=== PATIENT | female | born 1990 | race Two or more races ===

== ENCOUNTER 2016-11-22 14:12 | Emergency (ER) | payer OTHER ==
[2016-11-22 14:41] VITALS: BMI 29.0
--- NOTE | 2016-11-22 14:57 | PDOC ---
History of Present Illness - History of Present Illness Initial Comments: 11/22/16 15:25 The patient is a 26 year old female, 12 weeks , , with no significant past medical history, who presents to the emergency department via ems for vaginal bleeding, abdominal pain and vomiting today. She states she was home at rest when she noticed the vaginal bleeding today. She reports she has been nauseous and vomiting daily with this , however, today she has states she has been vomiting much more frequently than usual. She reports she has been bleeding through her pad and her pants, and describes the bleeding as much heavier than a period. She reports her most recent ultrasound was on 11/07 which was normal and states she saw her Chicken Handler last week. She denies chest pain, shortness of breath, headache and dizziness. She denies fever, chills, diarrhea and constipation. She denies dysuria, frequency, urgency and hematuria. Allergies: NKDA Past surgical history: Social history: Denies toxic habits Chicken Handler - Dr. Covington <Joann Orellana - Last Filed: 11/22/16 15:29> <Teresa Uribe - Last Filed: 11/23/16 07:52> - General Chief Complaint: Vaginal Bleeding Stated Complaint: POSSIBLE MISCARRIAGE Time Seen by Provider: 11/22/16 14:50 Past History <Joann Orellana - Last Filed: 11/22/16 15:29> - Past Medical History Asthma: No Cancer: No Cardiac Disorders: No Diabetes: No HTN: No Seizures: No Thyroid Disease: No - Psycho/Social/Smoking Cessation Hx Suicidal Ideation: No Smoking History: Never smoked Hx Alcohol Use: No Drug/Substance Use Hx: No Hx Substance Use Treatment: No <Teresa Uribe - Last Filed: 11/23/16 07:52> - Past Medical History Allergies/Adverse Reactions: Allergies Allergy/AdvReac Type Severity Reaction Status Date / Time No Known Allergies Allergy Verified 08/21/13 06:10 Home Medications: Ambulatory Orders NK [No Known Home Medication] 11/22/16 Review of Systems - Review of Systems Able to Perform ROS?: Yes Comments:: 11/22/16 15:25 GENERAL/CONSTITUTIONAL: No fever or chills. No weakness. HEAD, EYES, EARS, NOSE AND THROAT: No change in vision. No ear pain or discharge. No sore throat. CARDIOVASCULAR: No chest pain or shortness of breath. RESPIRATORY: No cough, wheezing, or hemoptysis. GASTROINTESTINAL: (+) nausea, vomiting, abdominal pain. No diarrhea or constipation. GENITOURINARY: No dysuria, frequency, or change in urination. PELVIC: (+) Vaginal bleeding in MUSCULOSKELETAL: No joint or muscle swelling or pain. No neck or back pain. SKIN: No rash NEUROLOGIC: No headache, vertigo, loss of consciousness, or change in strength/ sensation. ENDOCRINE: No increased thirst. No abnormal weight change. HEMATOLOGIC/LYMPHATIC: No anemia, easy bleeding, or history of blood clots. ALLERGIC/IMMUNOLOGIC: No hives or skin allergy. <Joann Orellana - Last Filed: 11/22/16 15:29> *Physical Exam - Vital Signs Last Vital Signs Temp Pulse Resp BP Pulse Ox 98.7 F 93 H 17 104/64 100 11/22/16 14:38 11/22/16 14:38 11/22/16 14:38 11/22/16 14:38 11/22/16 14:38 - Physical Exam Comments: 11/22/16 15:26 GENERAL: Awake, alert, and fully oriented, in no acute distress HEAD: No signs of trauma EYES: PERRLA, EOMI, sclera anicteric, conjunctiva clear ENT: Auricles normal inspection, hearing grossly normal, nares patent, oropharynx clear without exudates. Moist mucosa NECK: Normal ROM, supple, no lymphadenopathy, JVD, or masses LUNGS: Breath sounds equal, clear to auscultation bilaterally. No wheezes, and no crackles HEART: Regular rate and rhythm, normal S1 and S2, no murmurs, rubs or gallops ABDOMEN: (+) mild suprapubic tenderness to palpation. Soft, normoactive bowel sounds. No guarding, no rebound. No masses EXTREMITIES: Normal range of motion, no edema. No clubbing or cyanosis. No cords, erythema, or tenderness NEUROLOGICAL: Cranial nerves II through XII grossly intact. Normal speech, normal gait SKIN: Warm, Dry, normal turgor, no rashes or lesions noted. <Joann Orellana - Last Filed: 11/22/16 15:29> - Vital Signs Last Vital Signs Temp Pulse Resp BP Pulse Ox 98.7 F 93 H 17 104/64 100 11/22/16 14:38 11/22/16 14:38 11/22/16 14:38 11/22/16 14:38 11/22/16 14:38 - Physical Exam Comments: : No external lesions. Mod blood in the vault, os closed. No adnexal tenderness. <Teresa Uribe - Last Filed: 11/23/16 07:52> ED Treatment Course - LABORATORY CBC & Chemistry Diagram: 11/22/16 15:11 11/22/16 15:11 <Joann Orellana - Last Filed: 11/22/16 15:29> - LABORATORY CBC & Chemistry Diagram: 11/22/16 15:11 11/22/16 15:11 <Teresa Uribe - Last Filed: 11/23/16 07:52> Medical Decision Making - Medical Decision Making 11/22/16 16:[address] Nieto. Awaiting pelvic sono for threatened . <Teresa Uribe - Last Filed: 11/23/16 07:52> *DC/Admit/Observation/Transfer <Joann Orellana - Last Filed: 11/22/16 15:29> <Teresa Uribe - Last Filed: 11/23/16 07:52> Diagnosis at time of Disposition: Threatened miscarriage - Discharge Dispostion Disposition: HOME Condition at time of disposition: Stable - Referrals Referrals: Miguel A Covington MD [Staff Physician] - - Patient Instructions Printed Discharge Instructions: DI for Threatened Additional Instructions: You have and given a copy of results. Please do not insert tampons or have sex. Please follow-up with your CDS SALES ADVISOR doctor this Thursday. If you have worsening bleed or uncontrollable pain, please return to the ED for repeat ultrasound and blood work.
[2016-11-22 15:27] LABS: BASOPHIL 0.3 % (0-2.0); EOSINOPHIL 1.1 % (0-4.5); MCH 27.9 pg (25.7-33.7); MEAN CELL VOLUME 82.1 fl (80-96); MEAN PLT VOLUME 8.4 fl (7.5-11.1); NEUTROPHILS 70.5 % (42.8-82.8); PLATELET COUNT 187 K/MM3 (134-434); WHITE BLOOD COUNT 7.2 K/mm3 (4.0-10.0)
[2016-11-22] MEDS ORDERED: ONDANSETRON 4 MG/2 ML VIAL IVPUSH ONE (15:27)
[2016-11-22] MEDS ORDERED: SODIUM CHLORIDE 1,000 ML IV STA (15:27)
[2016-11-22] MEDS ORDERED: ACETAMINOPHEN 1000 MG/100 ML VIAL (NON FORMULARY) IVPB ONE (15:27)
[2016-11-22] MEDS ORDERED: ACETAMINOPHEN INJECTION 100 ML IVPB ONE (15:39)
[2016-11-22] MEDS ORDERED: ONDANSETRON 4 MG/2 ML VIAL ONE (15:39)
[2016-11-22 16:05] LABS: ALBUMIN 3.4 g/dl (3.4-5.0); ANION GAP 11 (8-16); CALCIUM 8.4 mg/dL (8.5-10.1); CO2 23 mmol/L (21-32); COCKROFT - GAULT 215.9085; CREATININE 0.5 mg/dL (0.55-1.02); GLUCOSE,RANDOM 79 mg/dL (74-106); SGOT/AST 14 U/L (15-37)
[2016-11-22 16:22] LABS: ALK PHOS 67 U/L (45-117); BILIRUBIN,TOTAL 0.8 mg/dL (0.2-1.0); SGPT/ALT 22 U/L (12-78); TOT PROT 6.4 g/dl (6.4-8.2)
[2016-11-22 18:01] LABS: URINE APPEARANCE CLEAR; URINE BILIRUBIN NEGATIVE (NEGATIVE); URINE COLOR YELLOW; URINE GLUCOSE (UA) NEGATIVE (NEGATIVE); URINE KETONE 2+ (NEGATIVE); URINE LEUK ESTERASE NEGATIVE (NEGATIVE); URINE NITRITE NEGATIVE (NEGATIVE); URINE PROTEIN NEGATIVE (NEGATIVE); URINE UROBILINOGEN NEGATIVE E.U./dl (0.2-1.0)
[2016-11-22 18:02] LABS: URINE BLOOD 3+ (NEGATIVE)
[2016-11-22 18:04] LABS: URINE MUCUS RARE; URINE RBC 278 /hpf (0-3); URINE WBC 3 /hpf (3-5)
--- NOTE | 2016-11-22 19:59 | PDOC ---
*Physical Exam - Vital Signs Last Vital Signs Temp Pulse Resp BP Pulse Ox 98.7 F 89 18 109/70 100 11/22/16 14:38 11/22/16 18:04 11/22/16 18:04 11/22/16 18:04 11/22/16 18:04 <EmiliaJosep - Last Filed: 11/22/16 20:00> - Vital Signs Last Vital Signs Temp Pulse Resp BP Pulse Ox 98.5 F 99 H 16 108/55 99 11/22/16 20:32 11/22/16 20:32 11/22/16 20:32 11/22/16 20:32 11/22/16 20:32 <López Garcia - Last Filed: 11/22/16 22:04> ED Treatment Course - LABORATORY CBC & Chemistry Diagram: 11/22/16 15:11 11/22/16 15:11 - ADDITIONAL ORDERS Additional order review: Laboratory Results 11/22/16 11/22/16 11/22/16 17:40 15:11 15:11 Sodium 138 Potassium 3.6 Chloride 104 Carbon Dioxide 23 Anion Gap 11 BUN 7 Creatinine 0.5 L D Creat Clearance w eGFR > 60 Random Glucose 79 D Calcium 8.4 L Total Bilirubin 0.8 AST 14 L ALT 22 Alkaline Phosphatase 67 Total Protein 6.4 Albumin 3.4 Beta HCG, Quant 556304.8 Urine Color Yellow Urine Appearance Clear Urine pH 5.0 Ur Specific [place] 1.031 Urine Protein Negative Urine Glucose (UA) Negative Urine Ketones 2+ H Urine Blood 3+ H Urine Nitrite Negative Urine Bilirubin Negative Urine Urobilinogen Negative Ur Leukocyte Esterase Negative Urine RBC 278 Urine WBC 3 Urine Mucus Rare Blood Type B POSITIVE Antibody Screen Negative 11/22/16 15:11 RBC 4.53 MCV 82.1 MCHC 34.0 RDW 14.0 MPV 8.4 Neutrophils % 70.5 Lymphocytes % 22.5 Monocytes % 5.6 Eosinophils % 1.1 Basophils % 0.3 - Medications Given in the ED: ED Medications Discontinued Medications Generic Name Dose Route Start Last Admin Trade Name Freq PRN Reason Stop Dose Admin Acetaminophen 1,000 mg 11/22/16 15:27 11/22/16 15:39 Ofirmev Injection - IVPB 11/22/16 15:28 1,000 mg ONCE ONE Administration Sodium Chloride 1,000 mls @ 1,000 mls/hr 11/22/16 15:27 11/22/16 15:38 Normal Saline - IV 11/22/16 16:26 1,000 mls/hr ASDIR STA Administration Ondansetron HCl 4 mg 11/22/16 15:27 11/22/16 15:39 Zofran Injection IVPUSH 11/22/16 15:28 4 mg ONCE ONE Administration <Josep Nieto - Last Filed: 11/22/16 20:00> - LABORATORY CBC & Chemistry Diagram: 11/22/16 15:11 11/22/16 15:11 - ADDITIONAL ORDERS Additional order review: Laboratory Results 11/22/16 11/22/16 11/22/16 17:40 15:11 15:11 Sodium 138 Potassium 3.6 Chloride 104 Carbon Dioxide 23 Anion Gap 11 BUN 7 Creatinine 0.5 L D Creat Clearance w eGFR > 60 Random Glucose 79 D Calcium 8.4 L Total Bilirubin 0.8 AST 14 L ALT 22 Alkaline Phosphatase 67 Total Protein 6.4 Albumin 3.4 Beta HCG, Quant 198444.8 Urine Color Yellow Urine Appearance Clear Urine pH 5.0 Ur Specific [place] 1.031 Urine Protein Negative Urine Glucose (UA) Negative Urine Ketones 2+ H Urine Blood 3+ H Urine Nitrite Negative Urine Bilirubin Negative Urine Urobilinogen Negative Ur Leukocyte Esterase Negative Urine RBC 278 Urine WBC 3 Urine Mucus Rare Blood Type B POSITIVE Antibody Screen Negative 11/22/16 15:11 RBC 4.53 MCV 82.1 MCHC 34.0 RDW 14.0 MPV 8.4 Neutrophils % 70.5 Lymphocytes % 22.5 Monocytes % 5.6 Eosinophils % 1.1 Basophils % 0.3 - RADIOLOGY Radiograph Interpretation: 11/22/16 22:03 EXAM: Pelvic US INTERPRETED BY: Dr. Sierra REVIEWED BY: Dr. Nieto IMPRESSION: Single live intrauterine gestation 11 weeks 5 days with estimated due date of 06/08/17. movement is observed. heart motion 161 beats per minute. 3.5 mm yolk sac present. Ovaries are unremarkable. No evidence for ovarian torsion. - Medications Given in the ED: ED Medications Discontinued Medications Generic Name Dose Route Start Last Admin Trade Name Freq PRN Reason Stop Dose Admin Acetaminophen 1,000 mg 11/22/16 15:27 11/22/16 15:39 Ofirmev Injection - IVPB 11/22/16 15:28 1,000 mg ONCE ONE Administration Sodium Chloride 1,000 mls @ 1,000 mls/hr 11/22/16 15:27 11/22/16 15:38 Normal Saline - IV 11/22/16 16:26 1,000 mls/hr ASDIR STA Administration Ondansetron HCl 4 mg 11/22/16 15:27 11/22/16 15:39 Zofran Injection IVPUSH 11/22/16 15:28 4 mg ONCE ONE Administration <López Garcia - Last Filed: 11/22/16 22:04> Medical Decision Making - Medical Decision Making 11/22/16 20:00 Sign-out received from outgoing Emergency Physician Dr. Uribe Pt interviewed and examined Ancillary studies reviewed Case discussed in detail with oncoming Emergency Physician including history, physical exam and ancillary studies. CBC, BMP 11/22/16 15:11 11/22/16 15:11 CMP Sodium 138 mmol/L (136-145) 11/22/16 15:11 Potassium 3.6 mmol/L (3.5-5.1) 11/22/16 15:11 Chloride 104 mmol/L (98-107) 11/22/16 15:11 Carbon Dioxide 23 mmol/L (21-32) 11/22/16 15:11 Anion Gap 11 (8-16) 11/22/16 15:11 BUN 7 mg/dL (7-18) 11/22/16 15:11 Creatinine 0.5 mg/dL (0.55-1.02) L D 11/22/16 15:11 Creat Clearance w eGFR > 60 (>60) 11/22/16 15:11 Random Glucose 79 mg/dL (74-106) D 11/22/16 15:11 Calcium 8.4 mg/dL (8.5-10.1) L 11/22/16 15:11 Total Bilirubin 0.8 mg/dL (0.2-1.0) 11/22/16 15:11 AST 14 U/L (15-37) L 11/22/16 15:11 ALT 22 U/L (12-78) 11/22/16 15:11 Alkaline Phosphatase 67 U/L (45-117) 11/22/16 15:11 Total Protein 6.4 g/dl (6.4-8.2) 11/22/16 15:11 Albumin 3.4 g/dl (3.4-5.0) 11/22/16 15:11 Beta HCG, Quant 442622.8 mIU/ml 11/22/16 15:11 Blood type B positive. Ultrasound and straight 11 weeks and 5 days and heart rate of 161. Patient was counseled on pelvic rest and to follow-up with her unit aid. Patient advised that if she has worsening vaginal bleeding, patient return to ED for further evaluation. I discussed the physical exam findings, ancillary test results and final diagnoses with the patient. I answered all of the patient's questions. The patient was satisfied with the care received and felt comfortable with the discharge plan and treatment plan. The patient will call their primary care physician within 24 hours to arrange follow-up and will return to the Emergency Department with any new, persistant or worsening symptoms. <Josep Nieto - Last Filed: 11/22/16 20:00> *DC/Admit/Observation/Transfer - Discharge Dispostion Admit: No <Josep Nieto - Last Filed: 11/22/16 20:00> <López Garcia - Last Filed: 11/22/16 22:04> Diagnosis at time of Disposition: Threatened miscarriage - Discharge Dispostion Disposition: HOME Condition at time of disposition: Stable - Referrals Referrals: Miguel A Covington MD [Staff Physician] - - Patient Instructions Printed Discharge Instructions: DI for Threatened Additional Instructions: You have and given a copy of results. Please do not insert tampons or have sex. Please follow-up with your SCAFFOLD WORKER doctor this Thursday. If you have worsening bleed or uncontrollable pain, please return to the ED for repeat ultrasound and blood work.
[2016-11-22 20:34] VITALS: BP 108/55; PULSE 99; TEMP 98.5
== END 2016-11-22 20:41 | disposition home or self-care (01) ==
LOC: JER 14:12
DX: O20.0 Threatened abortion (principal); Z3A.11 11 weeks gestation of pregnancy
CPT/HCPCS: 36415; 76801-TC; 80053; 81003; 81015; 84702; 85025; 86850; 86900; 86901; 87086; 99282-25

== ENCOUNTER 2017-06-03 11:55 | Inpatient (IN) | payer OTHER ==
[~2017-06-03 11:55] MED LIST: CITRIC ACID/SODIUM CITRATE 30 ML UNIT-DOSE CUP PO ONE
[2017-06-03] MEDS ORDERED: ELECTROLYTE-148 SOLN 500 ML IV SCH ×2 (12:00→12:30)
[2017-06-03 13:09] VITALS: BMI 39.1
--- NOTE | 2017-06-03 14:21 | HP ---
Past Medical History - Primary Care Physician PCP:: Kevin Maher - Admission Chief Complaint: 26yo female P2 with at EGA 39wks admitted for repeat C/S. History of Present Illness: with prior C/S x 2. 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: Alzheimer's, CVA, Dementia, Migraine, Multiple Sclerosis, Peripheral Neuropathy, Parkinson's, Seizure, Syncope, TIA, Vertigo, Other Cardiovascular: No: AFIB, Aneurysm, Aortic Insufficiency, Aortic Stenosis, CAD, CHF, Deep Vein Thrombosis, HTN, Hyperlipdemia, [place], Mitral Insufficiency, Mitral Stenosis, Murmur, Pulmonary Hypertension, Other Pulmonary: No: Asthma, Bronchitis, Cancer, COPD, O2 Dependent, Pneumonia, Previously Intubated, Pulmonary Embolus, Pulmonary Fibrosis, Sleep Apnea, Other Gastrointestinal: No: Ascites, Cancer, Constipation, Crohn's Disease, Diverticulitis, Diverticulosis, Esophageal Varices, Gastritis, GERD, GI Bleed, Hemorrhoids, Hiatal Hernia, Inflamatory Bowel Disease, Irritable Bowel Disease, Pancreatitis, Peptic Ulcer Disease, Ulcerative Colitis, Other Hepatobiliary: No: Cirrhosis, Cholelithiasis, Cholecystitis, Choledocholithiasis , Hepatitis A, Hepatitis B, Hepatitis C, Other Renal/: No: Renal Failure, Renal Inusuff, BPH, Cancer, Hematuria, Hemodialysis , Neurogenic Bladder, Renal Calculi, UTI, Other ...: 3 ...Para: 2 ...Term: 2 ...: 0 ...Spon : 0 ...Induced : 0 ...Multiple Gestation: 0 ...LMP: 09/04/16 ... Weeks Gestation by Dates: 39.0 ...EDC by Dates: 06/11/17 ...EDC by Sono: 06/09/17 Heme/Onc: No: Anemia, B12 Deficiency, Bleeding Disorder, Cancer, Current Chemotherapy, Current Radiation Therapy, Hemochromatosis, Hypercoaguable State, Myeloproliferative Synd, Sickle Cell Disease, Sickle Cell Trait, Thrombocytopenia, Other Infectious Disease: No: AIDS, C-Diff, Herpes Zoster, HIV, MRSA, STD's, Tuberculosis, VREF, Other Psych: No: Addictions, Anxiety, Bipolar, Depression, Panic, Psychosis, Schizophrenia, Other Musculoskeletal: No: Bursitis, Chronic low back pain, Hemiparesis, Hemiplegia, Osteoarthritis, Paraplegia, Other Rheumatology: No: Fibromyalgia, Gout, Lupus, Rheumatoid Arthritis, Sarcoidosis, Vasculitis, Other ENT: No: Allergic Rhinitis, Sinusitis, Other Endocrine: No: [place]'s Disease, Tsering's Disease, Diabetes Insipidus, Diabetes Mellitus, Hyperparathyroidism, Hyperthyroidism, Hypothyroidism, Osteopenia, SIADH, Other Dermatology: No: Basal Cell, Cellulitis, Eczema, Melanoma, Psoriasis, Squamous Cell, Other - Past Surgical History Past Surgical History: Yes: (x2) Hx Myomectomy: No Hx Transabdominal Cerclage: No - Smoking History Smoking history: Never smoked Have you smoked in the past 12 months: No - Alcohol/Substance Use Hx Alcohol Use: No - Social History Usual Living Arrangement: Yes: With Spouse, With Child ADL: Independent History of Recent Travel: No Home Medications - Allergies Allergies/Adverse Reactions: Allergies Allergy/AdvReac Type Severity Reaction Status Date / Time No Known Allergies Allergy Verified 06/03/17 12:38 - Home Medications Home Medications: Ambulatory Orders Vit/Iron Fumarate/FA [ Tablet] 1 tab PO DAILY 06/03/17 Family Disease History - Family Disease History Family Disease History: Diabetes: Father Review of Systems - Review of Systems Constitutional: reports: No Symptoms Eyes: reports: No Symptoms HENT: reports: No Symptoms Neck: reports: No Symptoms Cardiovascular: reports: No Symptoms Respiratory: reports: No Symptoms Gastrointestinal: reports: No Symptoms Genitourinary: reports: No Symptoms Breasts: reports: No Symptoms Reported Musculoskeletal: reports: No Symptoms Integumentary: reports: No Symptoms Neurological: reports: No Symptoms Endocrine: reports: No Symptoms Hematology/Lymphatic: reports: No Symptoms Psychiatric: reports: No Symptoms Pain Intensity: 0 Physical Exam - Maternity Vital Signs: Vital Signs Temperature 98.0 F 06/03/17 12:20 Pulse Rate 100 H 06/03/17 12:20 Respiratory Rate 20 06/03/17 12:20 Blood Pressure 120/65 06/03/17 12:20 O2 Sat by Pulse Oximetry (%) Constitutional: Yes: Well Nourished, No Distress, Calm Eyes: Yes: WNL, Conjunctiva Clear, EOM Intact HENT: Yes: WNL, Atraumatic, Normocephalic Neck: Yes: WNL, Supple, Trachea Midline Cardiovascular: Yes: WNL, Regular Rate and Rhythm Lungs: Clear to auscultation, Normal air movement - Abdominal Exam/OB Fundal Height: 39 Number of Fetuses: Single Presentation: Vertex Contractions: No Heart Rate (range): 130 Heart Rate Location: Midline Category: I Accelerations: Uniform Decelerations: None - Vaginal Exam/OB Vaginal Bleediing: No Speculum Exam: No Dilatation (cm): 0 Presentation: Vertex/Position Station: -4 - Physical Exam Musculoskeletal: Yes: WNL Extremities: Yes: WNL Hemorrhage Risk Assessment - Risk Factors Medium Risk Factors: Yes: Prior , uterine surgery,or multiple laparotomies High Risk Factors: Yes: None Risk Score: 1 Risk Level: Medium Risk Imaging - Results Ultrasound: Report Reviewed Assessment/Plan 26yo female P2 with at EGA 39wks admitted for repeat C/S. The fetus with Category I tracing. Pt is not in labor, declined . We discussed the risks and benefits of C/S at length, including but not limited to scarring, pain , bleeding, infection, injury to underlying organs and structures, need for additional surgery to repair/treat any problems or complications, complications/injuries, etc. The pt verbalized her understanding and requested to proceed with surgery.
[2017-06-03] MEDS: OXYTOCIN 20 UNITS in 0.9% NS 1,000 ML IV SCH ×2 (15:15→15:55)
[2017-06-03] MEDS ORDERED: ONDANSETRON 4 MG/2 ML VIAL IVPUSH PRN (15:17)
[2017-06-03] MEDS ORDERED: ACETAMINOPHEN 1000 MG/100 ML VIAL (NON FORMULARY) IVPB PRN (15:19)
[2017-06-03] MEDS ORDERED: IBUPROFEN 800 MG/8 ML IJ IVPB PRN (15:22)
[2017-06-03] MEDS ORDERED: oxyCODONE HCL 5 MG TABLET PO PRN (15:37)
[2017-06-03] MEDS ORDERED: METHYLERGONOVINE MALEATE 0.2 MG/1 ML AMP IM PRN (15:37)
--- NOTE | 2017-06-03 16:01 | OP ---
Operative Note - Note: Operative Date: 06/03/17 Pre-Operative Diagnosis: at EGA 39.0wks. Prior C/S Operation: Repeat LT C/S Findings: Live baby girl in vtx presentation, no meconium, normal uterus, tubes, ovaries. Post-Operative Diagnosis: Same as Pre-op Surgeon: Kevin Maher Senior Technical Editor: Evonne Hernández Anesthesiologist/SUPERVISORY TRAINING SPECIALIST: Suzanne Wood Anesthesia: Spinal Specimens Removed: Placenta Estimated Blood Loss (mls): 500 Drains & Tubes with Location: Ken Drains, Volume Out (mls): 200 Blood Volume Replaced (mls): 0 Fluid Volume Replaced (mls): 2,100 Operative Report Dictated: Yes
[2017-06-04 09:00] LABS: BASOPHIL 0.3 % (0-2.0); EOSINOPHIL 0.9 % (0-4.5); MCH 29.4 pg (25.7-33.7); MCHC 33.4 g/dl (32.0-36.0); MEAN CELL VOLUME 88.1 fl (80-96); MEAN PLT VOLUME 8.2 fl (7.5-11.1); NEUTROPHILS 72.2 % (42.8-82.8); PLATELET COUNT 153 K/MM3 (134-434); RDW 16.9 % (11.6-15.6); WHITE BLOOD COUNT 11.2 K/mm3 (4.0-10.0)
--- NOTE | 2017-06-04 09:36 | PN ---
Post Progress Note - Subjective Subjective: Patient without acute complaints. Tolerating clears Ken DC'd, no voidning yet No ambulation yet. No flatus yet. Denies fevers or chills. Pain well controlled. Post Day: 1 Type of Delivery: Repeat C/S Vital Signs: Vital Signs Temperature 98.6 F 06/04/17 08:55 Pulse Rate 72 06/04/17 08:55 Respiratory Rate 20 06/04/17 09:00 Blood Pressure 111/68 06/04/17 08:55 O2 Sat by Pulse Oximetry (%) 100 06/03/17 16:55 Breast Exam: Yes: Engorged Uterus: Yes: Fundus Firm Incision: Yes: Dressing dry and intact Abdomen/GI: Yes: Abdomen soft, Passing flatus, Tolerating PO. No: Tender Lochia: Yes: Serosa Activity: Ambulating - Labs Labs: CBC WBC 11.2 K/mm3 (4.0-10.0) H D 06/04/17 08:00 RBC 4.47 M/mm3 (3.60-5.2) 06/04/17 08:00 Hgb 13.1 GM/dL (10.7-15.3) 06/04/17 08:00 Hct 39.4 % (32.4-45.2) 06/04/17 08:00 MCV 88.1 fl (80-96) 06/04/17 08:00 MCH 29.4 pg (25.7-33.7) 06/04/17 08:00 MCHC 33.4 g/dl (32.0-36.0) 06/04/17 08:00 RDW 16.9 % (11.6-15.6) H 06/04/17 08:00 Plt Count 153 K/MM3 (134-434) 06/04/17 08:00 MPV 8.2 fl (7.5-11.1) 06/04/17 08:00 Neutrophils % 72.2 % (42.8-82.8) 06/04/17 08:00 Lymphocytes % 17.7 % (8-40) D 06/04/17 08:00 Monocytes % 8.9 % (3.8-10.2) 06/04/17 08:00 Eosinophils % 0.9 % (0-4.5) 06/04/17 08:00 Basophils % 0.3 % (0-2.0) 06/04/17 08:00 Assessment/Plan 26 yo POD # 1 s/p repeat CD, afebrile, vital signs stable, doing well 1. Continue routine postopserative care. 2. Follow up AM CBC 3. Rh positive status, no rhogam indicated. 4. Encourage ambulation and incentive spirometer use 5. Continue oral pain medication 6. Anticipate discharge home postoperative day #3 or #4
[2017-06-04] MEDS: ENOXAPARIN NA (PORCINE) 40 MG/0.4 ML DISP.SYRIN SQ SCH (09:46)
[2017-06-04] MEDS: IBUPROFEN 600 MG TABLET (FP) PO PRN ×3 (09:53→20:42)
[2017-06-04] MEDS: SIMETHICONE 80 MG TAB.CHEW (FP) PO PRN ×2 (09:53→20:42)
[2017-06-04] MEDS: ACETAMINOPHEN 325 MG TABLET (FP) PO PRN ×3 (09:54→20:43)
[2017-06-04] MEDS ORDERED: DIPHTH,PERTUSS(ACELL),TET 0.5 ML DISP.SYRIN IM ONE (14:00)
[2017-06-04] MEDS ORDERED: FLU VACC QS2017-18 36MOS UP/PF 60 MCG/0.5 ML SYRINGE IM ONE (14:00)
--- NOTE | 2017-06-04 14:25 | PN ---
Progress Note (short form) - Note Progress Note: Anesthesia postop note 26 y/o F s/p spinal anesthesia for repeat section, duramorph for postop pain management POD#1, vss, aaox3, ambulating, pain well controlled. No anesthesia complications.
[2017-06-04] MEDS ORDERED: BISACODYL 10 MG SUPP.RECT RC PRN (15:37)
[2017-06-04] MEDS: SENNOSIDES/DOCUSATE COMBO (SENNA PLUS) TABLET (UD) PO PRN (20:42)
[2017-06-04] MEDS: OXYTOCIN 20 UNITS in 0.9% NS 1,000 ML IV SCH (21:44)
[2017-06-05] MEDS: IBUPROFEN 600 MG TABLET (FP) PO PRN ×4 (04:46→22:00)
[2017-06-05] MEDS: SIMETHICONE 80 MG TAB.CHEW (FP) PO PRN ×4 (04:46→21:57)
[2017-06-05] MEDS: ACETAMINOPHEN 325 MG TABLET (FP) PO PRN ×2 (04:46→21:57)
--- NOTE | 2017-06-05 07:57 | PN ---
Progress Note (short form) - Note Progress Note: pod 2, s/p c/s doing well. ambulating , tolerating diet. CBC, BMP 06/04/17 08:00 Last Vital Signs Temp Pulse Resp BP Pulse Ox 98.2 F 80 20 110/64 100 06/04/17 22:00 06/04/17 22:00 06/04/17 22:00 06/04/17 22:00 06/03/17 16:55 abdomen soft, no distension, no cva incision dry, clean no calf tenderness plan ambulate, pain management
[2017-06-05] MEDS: ENOXAPARIN NA (PORCINE) 40 MG/0.4 ML DISP.SYRIN SQ SCH (10:26)
[2017-06-05] MEDS: oxyCODONE HCL 5 MG TABLET PO PRN ×3 (13:09→21:57)
[2017-06-06] MEDS: SIMETHICONE 80 MG TAB.CHEW (FP) PO PRN ×2 (07:38→12:37)
[2017-06-06] MEDS: IBUPROFEN 600 MG TABLET (FP) PO PRN ×2 (07:38→12:37)
[2017-06-06] MEDS: oxyCODONE HCL 5 MG TABLET PO PRN ×2 (07:39→12:37)
[2017-06-06] MEDS: SENNOSIDES/DOCUSATE COMBO (SENNA PLUS) TABLET (UD) PO PRN (07:41)
[2017-06-06 07:49] LABS: BASOPHIL 0.3 % (0-2.0); EOSINOPHIL 5.1 % (0-4.5); MCH 30.5 pg (25.7-33.7); MCHC 34.8 g/dl (32.0-36.0); MEAN CELL VOLUME 87.8 fl (80-96); MEAN PLT VOLUME 8.1 fl (7.5-11.1); NEUTROPHILS 65.7 % (42.8-82.8); PLATELET COUNT 160 K/MM3 (134-434); RDW 16.7 % (11.6-15.6); WHITE BLOOD COUNT 7.4 K/mm3 (4.0-10.0)
[2017-06-06] MEDS: ENOXAPARIN NA (PORCINE) 40 MG/0.4 ML DISP.SYRIN SQ SCH (09:07)
[2017-06-06 09:26] VITALS: BP 114/67; PULSE 90; TEMP 98.3
--- NOTE | 2017-06-06 14:25 | DS ---
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 Signs: Vital Signs Temperature 98.3 F 06/06/17 09:20 Pulse Rate 90 06/06/17 09:20 Respiratory Rate 18 06/06/17 09:20 Blood Pressure 114/67 06/06/17 09:20 O2 Sat by Pulse Oximetry (%) 100 06/03/17 16:55 Constitutional: Yes: Well Nourished, No Distress Eyes: Yes: WNL HENT: Yes: WNL Neck: Yes: WNL Cardiovascular: Yes: Regular Rate and Rhythm Respiratory: Yes: WNL, CTA Bilaterally Gastrointestinal: Yes: Normal Bowel Sounds ....Post : Yes: Uterus firm, Uterus non-tender Breast(s): Yes: WNL Extremities: Yes: WNL Wound/Incision: Yes: Clean/Dry, Well Approximated, Sutures Intact Neurological: Yes: WNL Labs: CBC, BMP 06/06/17 07:13 Delivery - Delivery Type of Anesthesia: Spinal Episiotomy/Laceration: None EBL (cc): 500 Delivery, Single - Stages of Labor Date of Delivery: 06/03/17 Time of Delivery: 15:03 Time Placenta Delivered: 15:04 - Condition of Warp Dyeing Tender/Tube Skiver Present: Yes Name: Diony Reynolds Infant Gender: Female Weight: 7 lb 8 oz Total Hours ROM (Hrs/Mins): 0/01 - 1 Minute Total Score: 9 5 Minutes Total Score: 9 - [place] Feeding Plan Initial Plan: Elected not to breastfeed exclusively throughout hospitalization Discharge Summary Reason For Visit: C SECTION Procedures: Principal: Repeat c/section Hospital Course: Delivered Condition: Good - Instructions Diet, Activity, Other Instructions: Physical activity Resume your normal everyday activity as tolerated no heavy lifting or exercise until seen by your surgeon. You may walk unlimited salvatore of and climb stairs. You may resume driving the car when you feel safe and comfortable behind the wheel. No sexual activity as instructed. Wound care If you have a bandage, leave it on, and keep dry for 48-72 hours. After that time discard the outer bandage. If they are tapes on the skin under the out of bandage leave them in place. They will peel off in the next 7 to 10 days. Do Not Peel them off. You may shower the day after surgery. If there are tapes present on the skin, you may shower over them. Diet There are no dietary restrictions. Eat healthy, high-fiber foods. Drink 6 to 8 glasses of liquid each day. This will assist in keeping your bowels are regular. Pain management You may take Tylenol or acetaminophen or Ibuprofen (for example, Motrin, Advil etc.) from my pain prescription medication is ordered should be taken as prescribed for moderate to severe pain. Call MD for any of the following: Severe pain not relieved by medication Fever of 101 or higher Excessive bleeding or drainage on dressing Inability to urinate Referrals: Kevin Maher MD [Staff Physician] - Disposition: HOME - Home Medications Comprehensive Discharge Medication List: Ambulatory Orders Vit/Iron Fumarate/FA [ Tablet] 1 tab PO DAILY 06/03/17
--- NOTE | 2017-06-08 18:39 | PATH ---
Surgical Pathology Report Patient Name: JERAMIE JOHNSON [facility]. Rec. 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 Specimen(s) Received PLACENTA Clinical History Repeat Final Diagnosis PLACENTA, SECTION: 653 g THIRD TRIMESTER PLACENTA WITH TRIVASCULAR UMBILICAL CORD AND UNREMARKABLE PLACENTAL MEMBRANES. Electronically Signed Zuri Hernandez M.D. Gross Description The specimen is received fresh labeled placenta and is a 653 gram, 16 x 15 x 4.5 cm. placenta with attached membranes and umbilical cord. The attached membranes are glistening and translucent and insert marginally. The umbilical cord measures 28 cm. in length and averages 1 cm. in diameter. The cord inserts marginally. No true knots or strictures are identified. Cut surface of the umbilical cord reveals 3 vessels. The surface is morrow blue with a branching pattern of blood vessels and a 4 x 3.5 x 1 cm area of subchorionic fibrin deposition. The maternal surface is red-brown with focal defects. Sectioning reveals red-brown, spongy parenchyma. No additional lesions are identified. Ramp Agent sections are submitted in three cassettes as follows: 1- membrane rolls and umbilical cord; 2-3- full thickness sections of placenta. [facility]/06/05/2017 [facility]/06/05/2017
== END 2017-06-06 15:22 | disposition home or self-care (01) | DRG 540 ==
LOC: JLDR 11:55 → J3W 17:10
PROVIDERS: ADMIT Obstetrics & Gynecology; ATTEND Obstetrics & Gynecology
PROC: 10D00Z1 Extraction of Products of Conception, Low, Open Approach (ICD-10-PCS; principal; 2017-06-03)
DX: O34.211 Maternal care for low transverse scar from previous cesarean delivery (principal); N85.8 Other specified noninflammatory disorders of uterus; Z3A.39 39 weeks gestation of pregnancy; Z37.0 Single live birth
CPT/HCPCS: 36415; 85025; 88307-TC; 90686; 90715; 94010; G0008

== ENCOUNTER 2024-01-19 03:48 | Day surgery (SDC) | payer OTHER ==
[2024-01-15 17:08] VITALS: BMI 27.8
[2024-01-19] MEDS ORDERED: FENTANYL CITRATE/PF 50 MCG/ML VIAL ONE (10:02)
[2024-01-19] MEDS ORDERED: MIDAZOLAM HCL 2 MG/2 ML SINGLE DOSE VIAL ONE (10:02)
[2024-01-19] MEDS ORDERED: PROPOFOL 20 ML ONE ×2 (10:02→10:47)
[2024-01-19] MEDS ORDERED: KETOROLAC TROMETHAMINE 30 MG/1 ML VIAL ONE (10:33)
[2024-01-19] MEDS ORDERED: DEXAMETHASONE SOD PHOSPHATE 4 MG/1 ML VIAL ONE (10:33)
[2024-01-19] MEDS ORDERED: ONDANSETRON 4 MG/2 ML VIAL ONE (10:33)
[2024-01-19] MEDS: LIDOCAINE HCL/PF 2% SDV 5ML VIAL INF ONE ×2 (10:40)
[2024-01-19] MEDS: BACITRACIN ZINC 15 GM TUBE TOPICAL OINTMENT TP ONE ×2 (11:02)
[2024-01-19] MEDS ORDERED: oxyCODONE HCL 5 MG TABLET PO PRN ×2 (11:28→12:40)
[2024-01-19] MEDS ORDERED: ONDANSETRON 4 MG/2 ML VIAL IVPUSH PRN ×2 (11:28→12:40)
[2024-01-19] MEDS ORDERED: LACTATED RINGERS SOLUTION 1,000 ML IV SCH (11:30)
[2024-01-19] MEDS: ACETAMINOPHEN 1000 MG/100 ML BAG IVPB ONE (11:43)
[2024-01-19] MEDS ORDERED: IBUPROFEN 600 MG TABLET (FP) PO PRN (12:40)
[2024-01-19] MEDS ORDERED: IBUPROFEN 800 MG/8 ML IJ IVPB PRN (12:40)
[2024-01-19] MEDS ORDERED: BACITRACIN ZINC 15 GM TUBE TOPICAL OINTMENT ONE (12:43)
[2024-01-19] MEDS ORDERED: ELECTROLYTE-148 SOLN 1,000 ML IV SCH (12:45)
[2024-01-19 12:46] VITALS: RESP 18
[2024-01-19 14:33] VITALS: BP 101/60; PULSE 68; TEMP 98.2
== END 2024-01-19 13:40 | disposition home or self-care (01) ==
LOC: JASU-SURG 03:48
PROVIDERS: ATTEND Obstetrics & Gynecology
PROC: 0UBM0ZZ Excision of Vulva, Open Approach (ICD-10-PCS; principal; 2024-01-19 10:30)
DX: N90.7 Vulvar cyst (principal)
CPT/HCPCS: 81025; 88305-TC; 94760; J0131